=== PATIENT | female | born 1995 | race Caucasian/White ===

== ENCOUNTER 2017-08-03 12:23 | Emergency (ER) | payer BC ==
[~2017-08-03] VITALS: Ht 176.5 cm; Wt 58.7 kg
[2017-08-03 12:26] VITALS: TEMP 36.6; Ht 176.5 cm; Wt 58.7 kg
[2017-08-03] MEDS ORDERED: BCPILLS PO (12:49)
[2017-08-03] MEDS ORDERED: SODIUM CHLORIDE 0.9% 1000ML 1,000 ML IV STA (12:53)
--- NOTE | 2017-08-03 12:53 | EMERGENCY ROOM VISIT NOTE ---
History Report prepared by Rachel: Lamar Pickering Under the Supervision of: Dr. Eladio Merlos M.D. First contact with patient: 12:40 Chief Complaint: DIZZY Stated Complaint: NAUSEA, LIGHT HEADED, DIZZY History of Present Illness The patient is a 21 year old female who presents to the Emergency Room with complaints of intermittent dizziness beginning a few weeks ago. The patient states that for the last few weeks she has had nausea and lightheadedness that are worse with eating. She reports that when she eats food she suddenly becomes lightheaded and dizzy. She notes that when the symptoms first started she was very nauseous but she is now more lightheaded. The patient reports that she was seen at urgent care a few days ago and they did blood work that was normal. She complains of blurry vision but notes that she does not have any double vision. She denies any fever, chills, cough, difficulty swallowing, congestion, vomiting , diarrhea, and urinary symptoms. Source of History: patient Onset: a few weeks ago Position: other (global) Quality: other (dizziness) Timing: intermittent Associated Symptoms: No fevers, No chills, No vomiting, No diarrhea, No urinary symptoms Note: The patient complains of blurry vision. She denies any congestion and difficulty swallowing. Review of Systems See HPI for pertinent positives and negatives. A total of ten systems were reviewed and were otherwise negative. Past Medical & Surgical Medical Problems: (1) No Known Active Medical Problems Family History No pertinent family history stated. Social History Smoking Status: Never Smoker Marital Status: single Housing Status: lives with roommate Occupation Status: [employer] student Current/Historical Medications Scheduled Control Pills ( Control Pills), 1 TAB PO DAILY Famotidine (Pepcid), 20 MG PO BID Ondasetron Odt (Zofran Odt), 4 MG SL Q6H Allergies Coded Allergies: No Known Allergies (Unverified , 08/03/17) Physical Exam Vital Signs Date Time Temp Pulse Resp B/P (MAP) Pulse Ox O2 Delivery O2 Flow Rate FiO2 08/03/17 14:20 53 18 96/53 96 08/03/17 13:07 61 107/55 80 106/71 91 103/66 08/03/17 13:06 60 08/03/17 12:26 36.6 91 20 121/71 97 Room Air Physical Exam GENERAL: Awake, alert, well-appearing, in no distress HENT: Normocephalic, atraumatic. Oropharynx unremarkable. EYES: Normal conjunctiva. Sclera non-icteric. NECK: Supple. No nuchal rigidity. FROM. No JVD. RESPIRATORY: Clear to auscultation. CARDIAC: Regular rate, normal rhythm. Extremities warm and well perfused. Pulses equal. ABDOMEN: Soft, non-distended. No tenderness to palpation. No rebound or guarding. No masses. RECTAL: Deferred. MUSCULOSKELETAL: Chest examination reveals no tenderness. The back is symmetrical on inspection without obvious abnormality. There is no CVA tenderness to palpation. No joint edema. LOWER EXTREMITIES: Calves are equal size bilaterally and non-tender. No edema. No discoloration. NEURO: Normal sensorium. No sensory or motor deficits noted. Cerebellar intact including finger to nose and alternating palms. No nystagmus. FROM of the neck does not reproduce symptoms. SKIN: No rash or jaundice noted. Medical Decision & Procedures Laboratory Results 08/03/17 12:55 Red Blood Count 4.55, Mean Corpuscular Volume 87.9, Mean Corpuscular Hemoglobin 30.1, Mean Corpuscular Hemoglobin Concent 34.3, Mean Platelet Volume 10.4, Neutrophils (%) (Auto) 50.7, Lymphocytes (%) (Auto) 32.3, Monocytes (%) (Auto) 12.6, Eosinophils (%) (Auto) 3.4, Basophils (%) (Auto) 0.8, Neutrophils # (Auto ) 2.50, Lymphocytes # (Auto) 1.59, Monocytes # (Auto) 0.62, Eosinophils # (Auto ) 0.17, Basophils # (Auto) 0.04 08/03/17 12:55 Test 08/03/17 12:55 White Blood Count 4.93 K/uL (4.8-10.8) Red Blood Count 4.55 M/uL (4.2-5.4) Hemoglobin 13.7 g/dL (12.0-16.0) Hematocrit 40.0 % (37-47) Mean Corpuscular Volume 87.9 fL (80-100) Mean Corpuscular Hemoglobin 30.1 pg (25-34) Mean Corpuscular Hemoglobin Concent 34.3 g/dl (32-36) Platelet Count 239 K/uL (130-400) Mean Platelet Volume 10.4 fL (7.4-10.4) Neutrophils (%) (Auto) 50.7 % Lymphocytes (%) (Auto) 32.3 % Monocytes (%) (Auto) 12.6 % Eosinophils (%) (Auto) 3.4 % Basophils (%) (Auto) 0.8 % Neutrophils # (Auto) 2.50 K/uL (1.4-6.5) Lymphocytes # (Auto) 1.59 K/uL (1.2-3.4) Monocytes # (Auto) 0.62 K/uL (0.11-0.59) Eosinophils # (Auto) 0.17 K/uL (0-0.5) Basophils # (Auto) 0.04 K/uL (0-0.2) RDW Standard Deviation 40.9 fL (36.4-46.3) RDW Coefficient of Variation 12.7 % (11.5-14.5) Immature Granulocyte % (Auto) 0.2 % Immature Granulocyte # (Auto) 0.01 K/uL (0.00-0.02) Anion Gap 6.0 mmol/L (3-11) Est Creatinine Clear Calc Drug Dose 85.0 ml/min Estimated GFR () 96.8 Estimated GFR (Non- 83.5 BUN/Creatinine Ratio 11.7 (10-20) Calcium Level 8.6 mg/dl (8.5-10.1) Total Bilirubin 0.5 mg/dl (0.2-1) Direct Bilirubin 0.1 mg/dl (0-0.2) Aspartate Amino Transf (AST/SGOT) 11 U/L (15-37) Alanine Aminotransferase (ALT/SGPT) 15 U/L (12-78) Alkaline Phosphatase 50 U/L (45-117) Total Protein 6.6 gm/dl (6.4-8.2) Albumin 3.7 gm/dl (3.4-5.0) Lipase 173 U/L (73-393) Thyroid Stimulating Hormone (TSH) 2.660 uIu/ml (0.300-4.500) Human Chorionic Gonadotropin, Qual NEG (NEG) Laboratory results reviewed by me Medications Administered Medications (Trade) Dose Ordered Sig/Hina Route Start Time Stop Time Status Last Admin Dose Admin Sodium Chloride 1,000 ml @ 999 mls/hr Q1H1M STAT IV 08/03/17 12:53 08/03/17 13:53 DC 08/03/17 12:53 999 MLS/HR ECG Indication: other (dizzy) Rate (beats per minute): 57 Rhythm: sinus bradycardia Findings: no acute ischemic change, other (normal axis) ED Course 1240: The patient was evaluated in room C5. A complete history and physical exam was performed. 1253: Sodium Chloride 1000 ml @ 999 mls/hr IV. 1312: The patient has positive orthostatics and her heart rate went to 60 to 90 upon standing. 1410: I reevaluated and updated the patient. She notes that she has had some congestion over the last few days. 1417: I reevaluated the patient. Discussed results and discharge instructions: She verbalized understanding and agreement. The patient is ready for discharge. Medical Decision I reviewed the patient's past medical history, medications, and the nursing notes as described above. Medication Reconciliation: I attest that I have personally reviewed the patient' s current medication list Blood pressure screening: Patient was found to have normal blood pressure on screening and does not require follow-up. Differential diagnosis includes dehydration, electrolyte abnormality, arrhythmia , anemia, , hypothyroidism, anemia. Patient is a 21-year-old woman who presents to emergency department with complaint of intermittent nausea after eating less and lightheadedness history of present illness. While the patient is well-appearing, in no acute distress, afebrile with stable vital signs. The patient had a positive orthostatic evaluation with a heart rate increasing from 60-90 with standing. Otherwise, the patient's exam is unremarkable. She is completely neurologically intact. Labs unremarkable including WBC, H/H,and TSH within normal limits. EKG unremarkable. Considering the patient's report of symptoms after eating well as the fact that she later reported some mild URI symptoms over the past couple of days, her symptoms could be explained by a viral syndrome with gastritis leading to mild dehydration. Findings and plan for follow-up reviewed with patient. Patient agreeable and d/c'd per discharge instructions. Impression Primary Impression: Dehydration Additional Impression: Gastritis Scribe Attestation The scribe's documentation has been prepared under my direction and personally reviewed by me in its entirety. I confirm that the note above accurately reflects all work, treatment, procedures, and medical decision making performed by me. Departure Information Dispostion Home / Self-Care Prescriptions Ondasetron Odt (ZOFRAN ODT) 4 Mg Tab 4 MG SL Q6H for Nausea, #6 TAB Prov: Eladio Merlos M.D. 08/03/17 Famotidine (PEPCID) 20 Mg Tab 20 MG PO BID for 14 Days, #28 TAB Prov: Eladio Merlos M.D. 08/03/17 Referrals No Doctor, Assigned (PCP) Patient Instructions ED Dehydration, ED Gastritis, My [facility] Additional Instructions Please follow up with your student clinic within the next week for re- evaluation. You likely are mildly dehydrated related to gastritis. Otherwise, your exam, EKG, and lab results did not show signs of an emergent condition at this time. Take Pepcid as directed. Plan as needed for nausea. Drink plenty of fluids to ensure hydration. Return to the emergency department for worsening symptoms as described in the accompanying instructions. Problem Qualifiers
[2017-08-03 13:10] LABS: BASO % 0.8 %; BASO ABS # 0.04 K/uL (0-0.2); COMPLETE YES; EOS % 3.4 %; IG% 0.2 %; LYMPH % 32.3 %; LYMPH ABS # 1.59 K/uL (1.2-3.4); MEAN CELL VOLUME 87.9 fL (80-100); MEAN CORPUSCULAR HEMOGLOBIN 30.1 pg (25-34); MEAN CORPUSCULAR HGB CONC 34.3 g/dl (32-36); MEAN PLATELET VOLUME 10.4 fL (7.4-10.4); MONO % 12.6 %; NEUT % 50.7 %; PLATELET COUNT 239 K/uL (130-400); RED BLOOD COUNT 4.55 M/uL (4.2-5.4); WHITE BLOOD COUNT 4.93 K/uL (4.8-10.8)
[2017-08-03 13:42] LABS: BUN/CREATININE RATIO 11.7 (10-20); CALCIUM 8.6 mg/dl (8.5-10.1); CREATININE 0.97 mg/dl (0.60-1.20); POTASSIUM 3.6 mmol/L (3.5-5.1)
[2017-08-03 13:48] LABS: PREG INTERNAL NEGATIVE QC NEG CLEAR BACKGROUND; PREG INTERNAL POSITIVE QC POS CONTROL LINE
[2017-08-03 13:52] LABS: THYROID STIMULATING HORMONE 2.66 uIu/ml (0.300-4.500)
[2017-08-03] MEDS ORDERED: ONDA4TAB10 SL (14:12)
[2017-08-03] MEDS ORDERED: FAMO20TA9 PO (14:12)
[2017-08-03 14:20] VITALS: BP 96/53; PULSE 53; O2SAT 96
== END 2017-08-03 14:20 | disposition home or self-care (01) ==
LOC: C.EDB 12:24 → C.EDC 14:20
DX: E86.0 Dehydration (principal); K29.70 Gastritis, unspecified, without bleeding; Z79.3 Long term (current) use of hormonal contraceptives